=== PATIENT | male | born 1955 | race Hispanic/Latino ===

== ENCOUNTER → 2017-09-09 | Outpatient (CLI) | payer OTHER ==
--- NOTE | 2017-09-09 13:03 | Diagnostic Imaging Report ---
PROCEDURE:X-RAY RIGHT SHOULDER, COMPLETE COMPARISON:None. INDICATIONS:RIGHT SHOULDER PAIN, LOSS RANGE OF MOTION FINDINGS: There are no fractures, dislocations, lytic or blastic lesions. The bones are well-mineralized. The soft-tissues are unremarkable. CONCLUSION: No acute fracture or dislocation of the right shoulder. Dictated by: Tan Boswell M.D. on 09/09/2017 at 13:05 Electronically approved by: Tan Boswell M.D. on 09/09/2017 at 13:05
== END ==
LOC: RAD 12:02
PROVIDERS: ATTEND Family Medicine
DX: M25.511 Pain in right shoulder (principal)

== ENCOUNTER → 2020-11-18 | Outpatient (CLI) | payer BC | LOC: MRI 07:45 | PROVIDERS: ATTEND Physician Assistant | DX: S83.242A Other tear of medial meniscus, current injury, left knee, initial encounter (principal) ==